=== PATIENT | male | born 1980 | race African-American/Black ===

== ENCOUNTER 2024-10-24 06:28 | Emergency (ER) | payer BC ==
--- OUTSIDE RECORDS SUMMARY | 2024-10-24 06:33 | XMS REPORT | Continuity of Care Document ---
Author Name Unknown Address [address] [facility] [address] [place] [address] Organization [facility] Address [address] [facility] 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 6 [id number] [facility] Problems Condition Name Condition Details Condition Category Status Onset Date Resolution Date Last Treatment Date Treating Clinician Comments Source Well adult exam Well adult exam Disease Active 2023-07 0 00:00: 00 Alta castaneda Diabetes mellitus Diabetes mellitus Disease Active 03-21 00:00: 00 Alta castaneda Erectile dysfunctio n Erectile dysfunctio n Disease Active 03-21 00:00: 00 Alta Mercadoa tonya Overweight (BMI 25.0-29.9) Overweight (BMI 25.0-29.9) Disease Active 03-21 00:00: 00 Alta castaneda Type 2 diabetes mellitus with hyperglyce keo, without long-term current use of insulin (multi HCC) Type 2 diabetes mellitus with hyperglyce keo, without long-term current use of insulin (multi HCC) Disease Active 03-21 00:00: 00 Alta castaneda Tobacco use Tobacco use Disease Active Alta castaneda Brachial plexus disorder (disorder) Brachial plexus disorder (disorder) Active Problem 08/01/2022 [facility] Neurology Beason Problem Active 2022-08-01 06:18:03 Darion Anaya Diabetes mellitus type 2 (disorder) Diabetes mellitus type 2 (disorder) Active Problem 08/01/2022 [facility] Neurology Beason Problem Active 2022-08-01 06:18:03 Darion Anaya [id number] Mixed hyperlipid emia Problem [facility] [id number] Postherpet ic neuralgia Problem [facility] [id number] 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 Problem [facility] [id number] Neuralgic amyotrophy Problem [facility] [id number] Type 2 diabetes mellitus with unspecifie d complicati ons Problem [facility] [id number] Tobacco use disorder Problem [facility] [id number] Otalgia of right ear Problem [facility] [id number] Noncomplia nce with dietary restrictio n Problem [facility] Allergies, Adverse Reactions, Alerts Allergy Name Allergy Type Status Severity Reaction(s) Onset Date Inactive Date Treating Clinician Comments Source Morphine Propensi ty to adverse reaction s Active 2023-07 00:00: 00 Other Reaction( s): Unknown Atla Wilkes - Externa l morphine morphine Active Unknown [facility] No Known Medicati on Allergie s No Known Medicati on Allergie s Active [facility]oria [facility] Social History Social Habit Start Date Stop Date Quantity Comments Source Gender identity Esme villalobos Surindershamika - External Sexual orientation Estrella poe Semicashamika - External History of Occupation Alta Wilkes - External History of tobacco use Cigarette Smoker Alta Cadena shamika - External Alcoholic beverage intake 2024-08-22 00:00:00 2024-08-22 00:00:00 Current drinker of alcohol (finding) Alta Wilkes - External Tobacco use and exposure 2024-05-22 00:00:00 2024-05-22 00:00:00 Smokeless tobacco non-user Alta Wilkes - External History of Social function 2024-05-22 00:00:00 2024-05-22 00:00:00 Alta Wilkes - External Cigarettes smoked current (pack per day) - Reported 2024-05-22 00:00:00 2024-05-22 00:00:00 Alta Wilkes - External Cigarette pack-years 2024-05-22 00:00:00 2024-05-22 00:00:00 Alta Wilkes - External Alcohol intake 2023-03-21 00:00:00 2023-03-21 00:00:00 Current drinker of alcohol (finding) Alta Wilkes - External Education 2023-03-21 00:00:00 2023-03-21 00:00:00 16 Alta Wilkes - External Alcohol Comment 2023-03-21 00:00:00 2023-03-21 00:00:00 occasionally Alta Wilkes - External Sex 2023-02-13 12:22:43 2023-02-13 12:22:43 Male (finding) Alta Wilkes - External Sex assigned at 1980 00:00:00 1980 00:00:00 Alta Wilkes - External Smoking Status Start Date Stop Date Source Smokes tobacco daily 2024-05-22 00:00:00 Alta Wilkes - External Medications Ordered Medication Name Filled Medication Name Start Date Stop Date Current Medication? Ordering Clinician Indication Dosage Frequency Signature (SIG) Comments Components Source Metformin HCl ER 500 MG oral TABLET SR 24 HR 08-22 00:00: 00 Yes [id number] 9109 1000mg Q.5D Take 2 tablets (1,000 mg total) by mouth 2 times daily. Alta Mercadoa tonya glipiZIDE 5 MG oral Tablet 08-22 00:00: 00 Yes [id number] 9109 5mg Take 1 tablet (5 mg total) by mouth in the morning and 1 tablet (5 mg total) in the evening. Take before meals. Alta castaneda Metformin HCl ER 500 MG oral TABLET SR 24 HR 2023-07 00:00: 00 08-22 00:00 :00 No [id number] 9109 1000mg Q.5D Take 2 tablets (1,000 mg total) by mouth 2 times daily. Alta castaneda Continuous Glucose Mechanical Tech (FreeStyle Nidhi 2 Robinson) does not apply Device 2023-07 00:00: 00 Yes [id number] 9109 Check BS continuous ly. Alta castaneda Continuous Glucose Sensor (FreeStyle Nihdi 2 Sensor) does not apply Misc 2023-07 00:00: 00 Yes [id number] 9109 Check BS continousl y. Alta castaneda glipiZIDE 5 MG oral Tablet 2023-07 00:00: 00 08-22 00:00 :00 No [id number] 9109 5mg Take 1 tablet (5 mg total) by mouth daily (before a meal). Alta castaneda GlipiZIDE 2.5 MG oral TABLET SR 24 HR 2023-07 15:13: 34 05-22 00:00 :00 No every 24 hours. Atla castaneda Lidocaine 5 % apply externally Ointment 2023-07 15:10: 26 05-22 00:00 :00 No [id number] 3D every 8 hours. Alta castaneda Metformin HCl 500 MG oral Tablet 2023-07 00:00: 00 Yes [id number] 9109 500mg Take 1 tablet (500 mg total) by mouth in the morning and 1 tablet (500 mg total) in the evening. Take with meals. Alta castaneda predniSONE (DELTASONE) 20 MG oral tablet 03-05 00:00: 00 05-22 00:00 :00 No Alta castaneda Metformin HCl ER 500 MG oral TABLET SR 24 HR 03-21 16:11: 01 03-21 00:00 :00 No every 12 hours. Alta castaneda Valacyclovi r HCl 1 g oral Tablet 03-21 16:03: 51 03-21 00:00 :00 No 1000mg 1 tablet (1,000 mg total) every 12 hours. Alta Chung castaneda Metformin HCl ER 500 MG oral TABLET SR 24 HR 03-21 16:00: 45 03-21 00:00 :00 No 1000mg Take 2 tablets (1,000 mg total) by mouth 2 times daily. Alta Secathy castaneda Metformin HCl ER 500 MG oral TABLET SR 24 HR 03-21 00:00: 00 05-22 00:00 :00 No [id number] 9109 1000mg Take 2 tablets (1,000 mg total) by mouth every 12 hours. 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, Weight Darion Anaya glipiZIDE 2021-07 15:40: 00 Yes PO, Daily, 0 Refill(s) Darion Anaya MetFORMIN (Eqv-Glucop xiomara XR) 500 mg oral tablet, extended release 2021-07 15:39: 00 Yes 500 mg = 1 tab, PO, Daily, with evening meal, # 30 tab, 0 Refill(s) Darion Leonann Metformin HCl 500 MG oral Tablet 2021-07 2-14 00:00: 00 05-22 00:00 :00 No 500 mg = 1 tab, PO, Daily, with evening meal, # 30 tab, 0 Refill(s) Alta Chung Mercadoa tonya glipiZIDE 10 MG oral Tablet 2021-07 2-14 00:00: 00 03-21 00:00 :00 No PO, Daily, 0 Refill(s) Alta Chung Mercadoa l methylPREDN ISolone 4 MG methylPREDN ISolone 4 MG - 00:00: 00 04-18 00:00 :00 No QD methylPRED NISolone 4 MG methylPREDN ISolone 4 MG methylPREDN ISolone 4 MG 04-12 00:00: 00 04-18 00:00 :00 No QD methylPRED NISolone 4 MG methylPREDN ISolone 4 MG methylPREDN ISolone 4 MG - 00:00: 00 04-18 00:00 :00 No QD methylPRED NISolone 4 MG methylPREDN ISolone 4 MG methylPREDN ISolone 4 MG -21 00:00: 00 04-18 00:00 :00 No QD methylPRED NISolone 4 MG methylPREDN ISolone 4 MG methylPREDN ISolone 4 MG 04-12 00:00: 00 04-18 00:00 :00 No QD methylPRED NISolone 4 MG Gabapentin 300 MG Gabapentin 300 MG 9-13 00:00: 00 No QD Gabapentin 300 MG Ofloxacin 0.3 % Ofloxacin 0.3 % 03-13 00:00: 00 03-20 00:00 :00 No 10{drop s_into_ affecte d_ear} QD Ofloxacin 0.3 % Ofloxacin 0.3 % Ofloxacin 0.3 % 03-13 00:00: 00 03-20 00:00 :00 No 10{drop s_into_ affecte d_ear} QD Ofloxacin 0.3 % glipiZIDE XL 2.5 MG glipiZIDE XL 2.5 MG 02-23 00:00: 00 No BID glipiZIDE XL 2.5 MG metFORMIN HCl ER 500 MG metFORMIN HCl ER 500 MG 02-23 00:00: 00 No BID metFORMIN HCl ER 500 MG glipiZIDE XL 2.5 MG glipiZIDE XL 2.5 MG 02-23 00:00: 00 No BID glipiZIDE XL 2.5 MG metFORMIN HCl ER 500 MG metFORMIN HCl ER 500 MG 02-23 00:00: 00 No BID metFORMIN HCl ER 500 MG glipiZIDE XL 2.5 MG glipiZIDE XL 2.5 MG 02-23 00:00: 00 No BID glipiZIDE XL 2.5 MG metFORMIN HCl ER 500 MG metFORMIN HCl ER 500 MG 02-23 00:00: 00 No BID metFORMIN HCl ER 500 MG Synjardy XR Synjardy XR 03-07 00:00: 00 11-11 00:00 :00 No [facility] Marie 2 tablets with breakfast [facility] valACYclovi r HCl 1 GM valACYclovi r HCl 1 GM No 1{table t} BID valACYclov ir HCl 1 GM Naproxen 500 MG Naproxen 500 MG No BID Naproxen 500 MG Naproxen 500 MG Naproxen 500 MG No BID Naproxen 500 MG Naproxen 500 MG Naproxen 500 MG No BID Naproxen 500 MG Naproxen 500 MG Naproxen 500 MG No BID Naproxen 500 MG Naproxen 500 MG Naproxen 500 MG No BID Naproxen 500 MG Naproxen 500 MG Naproxen 500 MG No BID Naproxen 500 MG Naproxen 500 MG Naproxen 500 MG No BID Naproxen 500 MG Naproxen 500 MG Naproxen 500 MG No BID Naproxen 500 MG Naproxen 500 MG Naproxen 500 MG No BID Naproxen 500 MG Immunizations Ordered Immunization Name Filled Immunization Name Date Status Comments Source Adacel (Tdap) Adacel (Tdap) 2019-05-06 15:10:00 Completed [facility] Adacel (Tdap) Adacel (Tdap) 2019-05-06 15:10:00 Completed [facility] Adacel (Tdap) Adacel (Tdap) 2019-05-06 15:10:00 Completed [facility] Adacel (Tdap) Adacel (Tdap) 2019-05-06 15:10:00 Completed [facility] Adacel (Tdap) Adacel (Tdap) 2019-05-06 15:10:00 Completed [facility] Adacel (Tdap) Adacel (Tdap) 2019-05-06 15:10:00 Completed [facility] Adacel (Tdap) Adacel (Tdap) 2019-05-06 15:10:00 Completed [facility] Adacel (Tdap) Adacel (Tdap) 2019-05-06 15:10:00 Completed [facility] Adacel (Tdap) Adacel (Tdap) 2019-05-06 15:10:00 Completed [facility] Adacel (Tdap) Adacel (Tdap) 2019-05-06 15:10:00 Completed [facility] Adacel (Tdap) Adacel (Tdap) 2019-05-06 15:10:00 Completed [facility] Adacel (Tdap) Adacel (Tdap) 2019-05-06 15:10:00 Completed [facility] Adacel (Tdap) Adacel (Tdap) 2019-05-06 15:10:00 Completed [facility] Adacel (Tdap) Adacel (Tdap) 2019-05-06 15:10:00 Completed [facility] Adacel (Tdap) Adacel (Tdap) 2019-05-06 15:10:00 Completed [facility] Adacel (Tdap) Adacel (Tdap) 2019-05-06 15:10:00 Completed [facility] Tdap- (Boostrix, Adacel) 2019-05-06 00:00:00 Completed Alta Wilkes - External TDAP > 7 Years-Adacel TDAP > 7 Years-Adacel 2019-05-06 00:00:00 Completed [facility] Pneumovax (PPSV23) Pneumovax (PPSV23) 2017-09-04 13:47:00 Completed [facility] Pneumovax (PPSV23) Pneumovax (PPSV23) 2017-09-04 13:47:00 Completed [facility] Pneumovax (PPSV23) Pneumovax (PPSV23) 2017-09-04 13:47:00 Completed [facility] Pneumovax (PPSV23) Pneumovax (PPSV23) 2017-09-04 13:47:00 Completed [facility] Pneumovax (PPSV23) Pneumovax (PPSV23) 2017-09-04 13:47:00 Completed [facility] Pneumovax (PPSV23) Pneumovax (PPSV23) 2017-09-04 13:47:00 Completed [facility] Pneumovax (PPSV23) Pneumovax (PPSV23) 2017-09-04 13:47:00 Completed [facility] Pneumovax (PPSV23) Pneumovax (PPSV23) 2017-09-04 13:47:00 Completed [facility] Pneumovax (PPSV23) Pneumovax (PPSV23) 2017-09-04 13:47:00 Completed [facility] Pneumovax (PPSV23) Pneumovax (PPSV23) 2017-09-04 13:47:00 Completed [facility] Pneumovax (PPSV23) Pneumovax (PPSV23) 2017-09-04 13:47:00 Completed [facility] Pneumovax (PPSV23) Pneumovax (PPSV23) 2017-09-04 13:47:00 Completed [facility] Pneumovax (PPSV23) Pneumovax (PPSV23) 2017-09-04 13:47:00 Completed [facility] Pneumovax (PPSV23) Pneumovax (PPSV23) 2017-09-04 13:47:00 Completed [facility] Pneumovax (PPSV23) Pneumovax (PPSV23) 2017-09-04 13:47:00 Completed [facility] Pneumovax (PPSV23) Pneumovax (PPSV23) 2017-09-04 13:47:00 Completed [facility] Pneumococcal Vaccine, Polysaccharide 2017-09-04 00:00:00 Completed Alta Seybold - External Tdap- (Boostrix, Adacel) Unknown Completed Alta Seybold - External Pneumococcal Vaccine, Polysaccharide Unknown Completed Alta Seybol d - External Tdap- (Boostrix, Adacel) Unknown Completed Alta Seybold - External Pneumococcal Vaccine, Polysaccharide Unknown Completed Alta Seybol d - External Pneumovax (PPSV23) Pneumovax (PPSV23) Unknown Completed [facility] Adacel (Tdap) Adacel (Tdap) Unknown Completed [facility] Pneumovax (PPSV23) Pneumovax (PPSV23) Unknown Completed [facility] Adacel (Tdap) Adacel (Tdap) Unknown Completed [facility] Pneumovax (PPSV23) Pneumovax (PPSV23) Unknown Completed [facility] Adacel (Tdap) Adacel (Tdap) Unknown Completed [facility] Pneumovax (PPSV23) Pneumovax (PPSV23) Unknown Completed [facility] Adacel (Tdap) Adacel (Tdap) Unknown Completed [facility] Pneumovax (PPSV23) Pneumovax (PPSV23) Unknown Completed [facility] Adacel (Tdap) Adacel (Tdap) Unknown Completed [facility] Vital Signs Vital Name Observation Time Observation Value Comments S ource Systolic blood pressure 2024-08-22 20:09:00 118 mm[Hg] Alta Huitronybliyah ld - External Diastolic blood pressure 2024-08-22 20:09:00 78 mm[Hg] Alta Seybo ld - External Heart rate 2024-08-22 20:09:00 107 /min Alekseyse y Seybold - External Body temperature 2024-08-22 20:09:00 36.28 Joana Alta Seybold - External Respiratory rate 2024-08-22 20:09:00 16 /min Alta Seybold - External Body height 2024-08-22 20:09:00 182.9 cm Esme ey Seybold - External Body weight 2024-08-22 20:09:00 83.099 kg Esme ey Seybold - External BMI 2024-08-22 20:09:00 24.85 kg/m2 Esme ey Seybold - External Oxygen saturation in Arterial blood by Pulse oximetry 2024-08-22 20:09:00 97 /min Alta Seybo ld - External Systolic blood pressure 2024-05-22 20:07:00 120 mm[Hg] Alta Seybo ld - External Diastolic blood pressure 2024-05-22 20:07:00 80 mm[Hg] Alta Seybo ld - External Heart rate 2024-05-22 20:07:00 97 /min Alekseyse y Seybold - External Body temperature 2024-05-22 20:07:00 35.94 Joana Alta Seybold - External Respiratory rate 2024-05-22 20:07:00 14 /min Alta Seybold - External Body height 2024-05-22 20:07:00 182.9 cm Esme ey Seybold - External Body weight 2024-05-22 20:07:00 78.926 kg Esme ey Seybold - External BMI 2024-05-22 20:07:00 23.60 kg/m2 Esme ey Seybold - External Body weight 2023-03-21 20:35:00 86.183 kg Esme ey Seybold - External BMI 2023-03-21 20:35:00 25.77 kg/m2 Esme ey Seybold - External Oxygen saturation in Arterial blood by Pulse oximetry 2023-03-21 20:35:00 99 /min Alta Seybo ld - External Systolic blood pressure 2023-03-21 20:35:00 127 mm[Hg] Alta Seybo ld - External Diastolic blood pressure 2023-03-21 20:35:00 88 mm[Hg] Alta Taylor ld - External Heart rate 2023-03-21 20:35:00 73 /min Marco Wilkes - External Body temperature 2023-03-21 20:35:00 35.72 Joana Alta Wilkes - External Respiratory rate 2023-03-21 20:35:00 20 /min Alta Wilkes - External Body height 2023-03-21 20:35:00 182.9 cm Esme Wilkes - External height 2022-12-12 11:30:00 72 [in_i] [facility] weight 2022-12-12 11:30:00 183 [lb_av] [facility] temperature 2022-12-12 11:30:00 98 [degF] [facility] bmi 2022-12-12 11:30:00 24.82 kg/m2 [facility] blood pressure systolic 2022-12-12 11:30:00 125 mm[Hg] [facility] blood pressure diastolic 2022-12-12 11:30:00 72 mm[Hg] [facility] height 2022-09-13 12:50:00 72 [in_i] [facility] weight 2022-09-13 12:50:00 184.8 [lb_av] [facility] bmi 2022-09-13 12:50:00 25.06 kg/m2 [facility] height 2022-09-07 08:20:00 72 [in_i] [facility] weight 2022-09-07 08:20:00 184.8 [lb_av] Co [facility] temperature 2022-09-07 08:20:00 97.5 [degF] [facility] bmi 2022-09-07 08:20:00 25.06 kg/m2 [facility] oximetry 2022-09-07 08:20:00 97 % [facility] respiratory rate 2022-09-07 08:20:00 17 /min [facility] blood pressure systolic 2022-09-07 08:20:00 124 mm[Hg] [facility] blood pressure diastolic 2022-09-07 08:20:00 72 mm[Hg] [facility] height 2022-06-05 09:50:00 72 [in_i] [facility] weight 2022-06-05 09:50:00 178 [lb_av] [facility] temperature 2022-06-05 09:50:00 97.2 [degF] Com [facility] bmi 2022-06-05 09:50:00 24.14 kg/m2 [facility] oximetry 2022-06-05 09:50:00 97 % [facility] respiratory rate 2022-06-05 09:50:00 16 /min [facility] blood pressure systolic 2022-06-05 09:50:00 130 mm[Hg] [facility] blood pressure diastolic 2022-06-05 09:50:00 86 mm[Hg] [facility] height 2022-05-09 10:30:00 72 [in_i] [facility] weight 2022-05-09 10:30:00 175 [lb_av] [facility] temperature 2022-05-09 10:30:00 97.5 [degF] Com [facility] bmi 2022-05-09 10:30:00 23.73 kg/m2 [facility] blood pressure systolic 2022-05-09 10:30:00 126 mm[Hg] [facility] blood pressure diastolic 2022-05-09 10:30:00 95 mm[Hg] [facility] height 2022-05-01 08:50:00 72 [in_i] [facility] weight 2022-05-01 08:50:00 177 [lb_av] [facility] temperature 2022-05-01 08:50:00 97.7 [degF] Com [facility] bmi 2022-05-01 08:50:00 24 kg/m2 [facility] oximetry 2022-05-01 08:50:00 99 % [facility] respiratory rate 2022-05-01 08:50:00 18 /min [facility] blood pressure systolic 2022-05-01 08:50:00 129 mm[Hg] [facility] blood pressure diastolic 2022-05-01 08:50:00 87 mm[Hg] [facility] height 2022-04-12 13:00:00 72 [in_i] [facility] weight 2022-04-12 13:00:00 174.2 [lb_av] [facility] temperature 2022-04-12 13:00:00 98.1 [degF] Com [facility] bmi 2022-04-12 13:00:00 23.62 kg/m2 [facility] oximetry 2022-04-12 13:00:00 100 % [facility] respiratory rate 2022-04-12 13:00:00 16 /min [facility] blood pressure systolic 2022-04-12 13:00:00 120 mm[Hg] [facility] blood pressure diastolic 2022-04-12 13:00:00 82 mm[Hg] [facility] height 2022-04-04 08:40:00 72 [in_i] [facility] weight 2022-04-04 08:40:00 173.5 [lb_av] [facility] temperature 2022-04-04 08:40:00 97.5 [degF] Com [facility] bmi 2022-04-04 08:40:00 23.53 kg/m2 [facility] oximetry 2022-04-04 08:40:00 100 % [facility] respiratory rate 2022-04-04 08:40:00 17 /min [facility] blood pressure systolic 2022-04-04 08:40:00 130 mm[Hg] [facility] blood pressure diastolic 2022-04-04 08:40:00 85 mm[Hg] [facility] height 2022-03-30 08:40:00 72 [in_i] [facility] weight 2022-03-30 08:40:00 181.4 [lb_av] [facility] temperature 2022-03-30 08:40:00 98.1 [degF] Com [facility] bmi 2022-03-30 08:40:00 24.6 kg/m2 [facility] oximetry 2022-03-30 08:40:00 94 % [facility] respiratory rate 2022-03-30 08:40:00 17 /min [facility] blood pressure systolic 2022-03-30 08:40:00 124 mm[Hg] [facility] blood pressure diastolic 2022-03-30 08:40:00 72 mm[Hg] [facility] height 2022-03-13 09:20:00 72 [in_i] [facility] weight 2022-03-13 09:20:00 177 [lb_av] [facility] bmi 2022-03-13 09:20:00 24 kg/m2 [facility] height 2022-02-23 15:50:00 72 [in_i] [facility] weight 2022-02-23 15:50:00 177.0 [lb_av] [facility] temperature 2022-02-23 15:50:00 98.4 [degF] Com [facility] bmi 2022-02-23 15:50:00 24 kg/m2 [facility] oximetry 2022-02-23 15:50:00 95 % [facility] respiratory rate 2022-02-23 15:50:00 16 /min [facility] blood pressure systolic 2022-02-23 15:50:00 122 mm[Hg] [facility] blood pressure diastolic 2022-02-23 15:50:00 80 mm[Hg] [facility] height 2022-02-08 15:10:00 72 [in_i] [facility] weight 2022-02-08 15:10:00 177.1 [lb_av] [facility] temperature 2022-02-08 15:10:00 98.4 [degF] Com [facility] bmi 2022-02-08 15:10:00 24.02 kg/m2 [facility] oximetry 2022-02-08 15:10:00 99 % [facility] respiratory rate 2022-02-08 15:10:00 18 /min [facility] blood pressure systolic 2022-02-08 15:10:00 128 mm[Hg] [facility] blood pressure diastolic 2022-02-08 15:10:00 86 mm[Hg] [facility] Diastolic (mm Hg) 2022-07-05 15:36:00 [facility] Heart Rate 2022-07-05 15:36:00 [facility] Height 2022-07-05 15:36:00 6 [ft_i] [facility] Weight 2022-07-05 15:36:00 [facility] BMI Calculated 2022-07-05 15:36:00 [facility] Systolic (mm Hg) 2022-07-05 15:36:00 [facility] Procedures Procedure Date / Time Performed Performing Clinicia n Source Rotator cuff repair [facility] Encounters Start Date/Time End Date/Time Encounter Type Admission Type Attending Clinicians Care Facility Care Department Encounter ID Source 2023-03-14 09:09:00 Out[facility] Marie[facility] [id number] [facility] 2023-03-13 08:25:00 Outpatient Marie, [facility] [id number] [facility] 2022-09-13 12:00:00 Outpatient Marie, [facility] [id number] [facility] 2022-06-01 09:57:00 Outpatient Marie, [facility] [id number] [facility] 2022-05-09 10:28:00 Outpatient Marie, [facility] [id number] [facility] 2022-04-28 08:42:00 Outpatient Marie, [facility] [id number] [facility] 2022-04-20 09:03:00 Outpatient Marie, [facility] [id number] [facility] 2022-02-22 10:12:00 Outpatient Marie, [facility] [id number] [facility] 2021-08-17 11:17:54 Outpatient Marie, [facility] [id number] [facility] 2024-11-17 14:30:00 2024-11-17 14:30:00 Outpatient ROVERTO CUENCA [id number] [facility] 2024-09-12 15:45:00 2024-09-12 15:45:00 Outpatient ZBIGNIEW, RICHARD CAI ALTA [id number] [facility] 2024-09-09 00:00:00 2024-09-09 00:00:00 Outpatient PREZAS, ROVERTO CAI ALTA [id number] [facility] 2024-09-05 00:00:00 2024-09-05 00:00:00 Outpatient PREZAS, ROVERTO CAI ALTA [id number] [facility] 2024-09-01 08:00:00 2024-09-01 08:00:00 Outpatient LAB90 ALTA ALTA [id number] [facility] 2024-08-29 08:00:00 2024-08-29 08:00:00 Outpatient LAB90 ALTA ALTA [id number] [facility] 2024-08-22 14:15:00 2024-08-22 14:15:00 Outpatient PREZAS, ROVERTO CAI ALTA [id number] [facility] 2024-08-15 00:00:00 2024-08-15 00:00:00 Outpatient PREZAS, ROVERTO ALTA CAI [id number] [facility] 2024-06-23 00:00:00 2024-06-23 00:00:00 Outpatient PREZAS, ROVERTO ALTA CAI [id number] [facility] 2024-06-20 00:00:00 2024-06-20 00:00:00 Outpatient PREZAS, ROVERTO ALTA CAI [id number] [facility] 2024-06-18 00:00:00 2024-06-18 00:00:00 Outpatient PREZAS, ROVERTO ALTA CAI [id number] [facility] 2024-06-16 15:45:00 2024-06-16 15:45:00 Outpatient ZBIGNIEW, RICHARD ALTA CAI [id number] [facility] 2024-06-16 00:00:00 2024-06-16 00:00:00 Outpatient PREZAS, ROVERTO ALTA CAI [id number] [facility] 2024-06-16 00:00:00 2024-06-16 00:00:00 Outpatient PREZASROVERTO ALTA [id number] [facility] 2024-06-04 00:00:00 2024-06-04 00:00:00 Outpatient PREZASROVERTO ALTA [id number] [facility] 2024-05-27 08:40:00 2024-05-27 08:40:00 Outpatient LAB90 ALTA ARGUETASEY [id number] [facility] 2024-05-22 15:30:00 2024-05-22 15:30:00 Outpatient PREZASROVERTO ALTA [id number] [facility] 2024-02-28 00:00:00 2024-02-28 00:00:00 Outpatient PREZASROVERTO ALTA [id number] [facility] 2023-06-06 00:00:00 2023-06-06 00:00:00 Outpatient PREZASROVERTO ALTA [id number] [facility] 2023-04-23 16:00:00 2023-04-23 16:00:00 Outpatient PREZASROVERTO ALTA [id number] [facility] 2023-04-02 00:00:00 2023-04-02 00:00:00 Outpatient PREZASROVERTO ALTA [id number] [facility] 2023-03-21 16:00:00 2023-03-21 16:00:00 Outpatient PREZAS[facility]OVERTO [facility]TA [facility] [id number] [facility]:00 2023-03-15 00:00:00 Outpatient MD ALTA BURGESS [id number] [facility] 2023-03-15 00:00:00 2023-03-15 00:00:00 Outpatient MD ALTA BURGESS [id number] [facility] 2022-12-12 00:00:00 2022-12-12 00:00:00 OFFICE VISIT ESTAB PT LEVEL 4 [facility] [id number] [facility] 2022-09-13 00:00:00 2022-09-13 00:00:00 OFFICE VISIT ESTAB PT LEVEL 3 [facility] [id number] [facility] 2022-09-13 00:00:00 2022-09-13 00:00:00 (TEL) [facility]C [facility] [id number] [facility] 2022-09-07 00:00:00 2022-09-07 00:00:00 OFFICE VISIT ESTAB PT LEVEL 3 [facility] [id number] [facility] 2022-09-07 00:00:00 2022-09-07 00:00:00 (TEL) [facility]C [facility] [id number] [facility] 2022-07-28 14:32:00 2022-07-30 05:59:59 Outside Medical Records [facility] [id number] Darion castaneda [place] 2022-07-07 15:19:41 2022-07-09 05:59:59 Outside Medical Records [facility] [id number] Darion Leonann 2022-07-05 15:30:00 2022-07-06 05:59:59 Outpatient [facility] [id number] Darion Leonann 2022-06-05 00:00:00 2022-06-05 00:00:00 OFFICE VISIT ESTAB PT LEVEL 4 [facility]C [facility] [id number] [facility] 2022-05-10 00:00:00 2022-05-10 00:00:00 (TEL) STLMLC [facility] [id number] [facility] 2022-05-09 00:00:00 2022-05-09 00:00:00 CONSULT - OFFICE, L4 [facility]MLC [facility] [id number] [facility] 2022-05-01 00:00:00 2022-05-01 00:00:00 OFFICE VISIT EST PT LEVEL 3 [facility]C [facility] [id number] [facility] 2022-04-14 00:00:00 2022-04-14 00:00:00 (TEL) [facility]LMLC [facility] [id number] [facility] 2022-04-12 00:00:00 2022-04-12 00:00:00 (TEL) STLMLC [facility] [id number] [facility] 2022-04-12 00:00:00 2022-04-12 00:00:00 OFFICE VISIT EST PT LEVEL 3 [facility]C [facility]C [id number] [facility] 2022-04-04 00:00:00 2022-04-04 00:00:00 OFFICE VISIT EST PT LEVEL 3 [facility]C [facility]C [id number] [facility] 2022-03-30 00:00:00 2022-03-30 00:00:00 OFFICE VISIT EST PT LEVEL 3 [facility]C [facility]C [id number] [facility] 2022-03-30 00:00:00 2022-03-30 00:00:00 (TEL) STLMLC [facility]C [id number] [facility] 2022-03-13 00:00:00 2022-03-13 00:00:00 OFFICE VISIT EST PT LEVEL 3 [facility]C [facility]C [id number] [facility] 2022-03-13 00:00:00 2022-03-13 00:00:00 (TEL) STLMLC [facility]C [id number] [facility] 2022-02-23 00:00:00 2022-02-23 00:00:00 OFFICE VISIT ESTAB PT LEVEL 4 [facility]C [facility]C [id number] [facility] 2022-02-08 00:00:00 2022-02-08 00:00:00 PREV VISIT EST AGE 40-64 STLMLC STLMLC [id number] [facility] 2019-08-14 08:00:00 2019-08-14 08:00:00 Outpatient D[facility]ie [facility] Medicine Michaela [facility] [id number] [facility] 2019-07-24 07:56:00 2019-07-24 07:56:00 [facility] [id number] [facility] 2019-05-06 14:45:00 2019-05-06 14:45:00 [facility] [id number] [facility] 2019-03-07 15:07:00 2019-03-07 15:07:00 Outpatient [facility] [id number] [facility] 2019-03-07 09:30:00 2019-03-07 09:30:00 Outpatient [facility] Medicine [facility] [id number] [facility] 2019-02-21 13:45:00 2019-02-21 13:45:00 [facility] [id number] [facility] 2019-02-21 00:00:00 2019-02-21 00:00:00 Outpatient [facility]C [facility] [id number] [facility] 2017-10-25 08:45:00 2017-10-25 08:45:00 Outpatient [facility] [id number] [facility] Results Test Description Test Time Test Comments Results Result Co mments Source HEMOGLOBIN [id number] 00:00:00* Test Item Value Reference Range Interpretation Comme nts A1C (test code = 4548-4) 8.4 Notes Date/Time Note Provider Source 2024-08-22 14:11:40 Chief Complaint Patient presents with Diabetes 3 month follow up Antoine Feldman MA [facility] 2024-05-22 15:10:31 Chief Complaint Patient presents with Diabetes He hasn't taken any diabetic medication in about a year. Julieta Delgado MA II [facility] 2023-03-21 15:38:56 Formatting of this n ote might be different from the original. Patient is here to establish care. He has been diabetic for 5 years. Maternal side of family with sever diabetes. [facility]
[2024-10-24] MEDS ORDERED: NA CHLORIDE 0.9% 1,000 ML ONE ×2 (06:42→08:22)
[2024-10-24] MEDS ORDERED: KETOROLAC 30 MG/ML INJ ONE (06:42)
[2024-10-24 07:05] LABS: Absolute Basophils 0.1 K/uL (0-0.5); Absolute Lymphocytes (CBC) 0.3 K/uL (0.7-4.9); Absolute Monocytes 0.5 K/uL (0.1-1.3); Absolute Neutrophil 13.3 K/uL (1.8-8.0); Basophils % 0.5 % (0-1.3); Eosinophils % 0.3 % (0-4.4); Hematocrit 49.2 % (39.6-49.0); Lymphocytes % 1.9 % (15.3-44.8); MCH 31.2 pg (27.0-35.0); MCHC 34.6 g/dL (32.0-36.0); MCV 90.1 fL (80-100); MPV 8.9 fL (7.6-11.3); Monocytes % 3.7 % (3.3-12.3); Neutrophils % 93.6 % (41.7-73.7); Platelets 222 thou/uL (152-406); RBC Red Blood Cell Count 5.46 M/uL (4.33-5.43); Red Cell Distribution Width 12.6 % (12.1-15.2)
[2024-10-24 07:15] LABS: Albumin 4.1 g/dL (3.4-5.0); Albumin/Globulin Ratio 1.2 (1.1-1.8); Anion Gap 7.1 mEq/L (5.0-15.0); Bilirubin Total 1.6 mg/dL (0.2-1.0); Globulin 3.4 g/dL (2.3-3.5); Potassium 4.1 mEq/L (3.5-5.1); Protein, Total 7.5 g/dL (6.4-8.2)
--- NOTE | 2024-10-24 08:15 | RAD REPORT ---
EXAMINATION: CT ABDOMEN AND PELVIS WITH CONTRAST CLINICAL INDICATION: ABD PAIN TECHNIQUE: CT abdomen and pelvis was performed, after the administration of IV contrast, as per [facility] protocol. Axial, sagittal and coronal reconstructions were obtained. One or more of the following dose reduction techniques were used: Automated exposure control, adjustment of the mA and k V according to patient size, and iterative reconstruction. Unless otherwise specified, incidental findings do not require dedicated imaging follow-up. COMPARISON: No prior exam. FINDINGS: LOWER CHEST: The visualized lung bases are clear. Small hiatal hernia. LIVER: Normal in size and contour. No focal lesion. Cholecystectomy clips. SPLEEN: Normal size. No focal lesion. PANCREAS: No mass, ductal dilation, or evelia-pancreatic fluid. ADRENALS: Normal; no mass. KIDNEYS: Normal size and contour. No hydronephrosis. GASTROINTESTINAL TRACT: No evidence of free air, significant intra-abdominal free fluid, bowel obstru ction or abscess. APPENDIX: Normal appendix. LYMPH NODES: No lymphadenopathy. MUSCULOSKELETAL: Prominent posterior disc bulging lower lumbar spine. ADDITIONAL FINDINGS: Moderate stool is present throughout the colon. IMPRESSION: No acute or concerning abnormalities seen in the abdomen or pelvis. Moderate stool retention throughout the colon.
[2024-10-24 08:57] LABS: Sqamous Epithelial None Seen /HPF (None Seen); Urine Bacteria None Seen /HPF (<20); Urine Bilirubin NEGATIVE (Negative); Urine Blood Negative (Negative); Urine Clarity Clear (Clear); Urine Color Light-Yellow (Yellow); Urine Culture Reflex Order NOT NEEDED; Urine Glucose 4+ (Over) (Negative); Urine Ketones 1+ (Negative); Urine Micro Reflex YN NO BILL MICROSCOPIC; Urine Nitrite NEGATIVE (Negative); Urine Protein NEGATIVE (Negative); Urine RBC <5 /HPF (None Seen); Urine Urobilinogen Normal (Normal); Urine WBC <5 /HPF (<5)
[2024-10-24 09:01] LABS: Specific Gravity > 1.030 (1.005-1.030)
--- NOTE | 2024-10-24 09:05 | EDPHYS ---
Physician Documentation [facility] Name: Edinson Coffey Jr Age: 44 yrs Sex: Male : 1980 Arrival Date: 10/24/2024 Time: 06:28 Bed 6 Private MD: ED Physician Mannie Marie HPI: 10/24 06:39 This 44 yrs old Black Male presents to ER via Unassigned with complaints of Low Back rt Pain, Nausea/Vomiting. 06:39 Patient presents to the ED with back pain, nausea, vomiting starting at about 1:00. rt Patient reports he has been constipated for several days. Reports pain to the mid back, worse on the sides. Also reports a vague abdominal pain. Denies other complaints at this time, symptoms are moderate in severity, no other aggravating or alleviating factors.. Historical: - Allergies: 06:44 Morphine; vc1 - PMHx: 06:44 diabetes mellitus; vc1 - PSHx: 06:44 Cholecystectomy; left arm; vc1 - Immunization history:: Client reports having NOT received the Covid vaccine. - Infectious Disease History:: Denies. - Family history:: not pertinent. - Social history:: Smoking status: Patient reports the use of cigarette tobacco products, smokes one pack cigarettes per day. ROS: 06:39 Constitutional: Negative for fever, chills, and weight loss, Cardiovascular: Negative rt for chest pain, palpitations, and edema, Respiratory: Negative for shortness of breath, cough, wheezing, and pleuritic chest pain, MS/Extremity: Negative for injury and deformity, Skin: Negative for injury, rash, and discoloration, 06:39 Abdomen/GI: Positive for abdominal pain, nausea and vomiting, constipation, 06:39 Back: Positive for pain at rest, flank pain, Exam: 06:39 Constitutional: This is a well developed, well nourished patient who is awake, alert, rt and in no acute distress. Head/Face: Normocephalic, atraumatic. Chest/axilla: Normal chest wall appearance and motion. Nontender with no deformity. No lesions are appreciated. Cardiovascular: Regular rate and rhythm with a normal S1 and S2. No gallops, murmurs, or rubs. Normal PMI, no JVD. No pulse deficits. Respiratory: Lungs have equal breath sounds bilaterally, clear to auscultation and percussion. No rales, rhonchi or wheezes noted. No increased work of breathing, no retractions or nasal flaring. Abdomen/GI: Soft, non-tender, with normal bowel sounds. No distension or tympany. No guarding or rebound. No evidence of tenderness throughout. Skin: Warm, dry with normal turgor. Normal color with no rashes, no lesions, and no evidence of cellulitis. MS/ Extremity: Pulses equal, no cyanosis. Neurovascular intact. Full, normal range of motion. Neuro: Awake and alert, GCS 15, oriented to person, place, time, and situation. Cranial nerves II-XII grossly intact. Motor strength 5/5 in all extremities. Sensory grossly intact. Cerebellar exam normal. Normal gait. 06:39 Back: Tenderness to the bilateral flanks, worse on the left compared to the right, 06:53 ECG was reviewed by the Attending Physician. rt Vital Signs: 06:40 BP 134 / 99; Pulse 129; Resp 16; Temp 97.4; Pulse Ox 98% ; Weight 79.38 kg; Height 6 vc1 ft. 0 in. ; Pain 7/10; 07:45 BP 126 / 85; Pulse 107; Resp 18; Pulse Ox 100% on R/A; ph 08:46 BP 115 / 83; Pulse 100; Resp 16 S; Pulse Ox 99% on R/A; aa5 09:11 BP 115 / 83; Pulse 96; Resp 18; Temp 97.5; Pulse Ox 100% on R/A; ph 06:40 Body Mass Index 23.73 (79.38 kg, 182.88 cm) vc1 06:40 Pain Scale: Adult vc1 MDM: 06:34 Medical Screening Exam initiated rt 07:39 ED course: Patient signed out to me by nighttime physician. Patient is a 44-year-old sp3 male with history of diabetes who presents with vomiting, nonspecific low back pain and history of recent abdominal pain several days ago which has now resolved. Patient is s/p cholecystectomy. He arrived tachycardic with nausea which has somewhat resolved after IV fluids and symptomatic medications. Current heart rate 105. CT scan is pending. Differential diagnosis includes UTI/pyelonephritis spectrum, gastroenteritis, kidney stone, viral illness, dehydration, among others. Nothing to add to existing workup and disposition pending workup and patient course. Patient currently comfortable and declined any further medications at this time.. 08:27 Data reviewed: vital signs, nurses notes, old medical records, lab test result(s), sp3 radiologic studies. ED course: CT demonstrated some mild constipation without any significant findings. Patient heart rate still 105-110. No urine output as of yet. We will administer second liter normal saline to further hydrate and obtain urine sample and ensure urine output.. 09:02 ED course: Urine demonstrates no infection or other abnormality. Ketones noted. Patient sp3 is now feeling much better after second liter and we will safely discharge him home at this time.. 04 06:39 Order name: CBC with Diff; Complete Time: 07:16 rt 10/24 06:39 Order name: CMP; Complete Time: 07:16 rt 10/24 06:39 Order name: Lipase; Complete Time: 07:16 rt 10/24 06:39 Order name: UAM; Complete Time: 09:02 rt 04 06:39 Order name: CT Abd/Pelvis - IV Contrast Only; Complete Time: 08:15 rt 10/24 06:42 Order name: EKG; Complete Time: 06:43 rt 10/24 06:39 Order name: IV Saline Lock; Complete Time: 06:48 rt 10/24 06:39 Order name: Labs collected and sent; Complete Time: 06:48 rt 10/24 06:42 Order name: EKG - Nurse/Tech; Complete Time: 06:54 rt EC:53 Rate is 110 beats/min. Rhythm is regular, Sinus tachycardia with No ectopy. QRS [place] is rt Normal. [place] interval is normal. QRS interval is normal. QT interval is normal. No Q waves. T waves are Normal. No ST changes noted. Interpreted by me. Reviewed by me. Administered Medications: 06:48 Drug: TORadol - Ketorolac IVP 15 mg IVP once Route: IVP; Site: right antecubital; ha1 07:46 Follow up: Response: No adverse reaction; Pain is decreased ph 06:48 Drug: NS 0.9% IV 1000 ml IV at 1 bolus Per protocol; to be given as a bolus over 60 ha1 minutes Route: IV; Rate: 1 bolus; Site: right antecubital; 08:00 Follow up: Response: No adverse reaction; IV Status: Completed infusion; IV Intake: ph 1000ml 08:23 Drug: NS 0.9% IV 1000 ml IV at 1 bolus Per protocol; to be given as a bolus over 60 aa5 minutes Route: IV; Rate: 1 bolus; Site: right antecubital; 09:12 Follow up: Response: No adverse reaction; IV Status: Completed infusion; IV Intake: ph 1000ml 08:45 CANCELLED (Physician Discretion): ns 0.9% 1000 ml IV at 1000 ml once; to be given as a aa5 bolus over 60 minutes Disposition Summary: 10/24/24 09:04 Discharge Ordered Notes: Location: Home sp3 Condition: Stable sp3 Diagnosis - Vomiting, dehydration, hyperglycemia sp3 Followup: sp3 - With: Private Physician - When: Upon discharge from the Emergency Department - Reason: Continuance of care Discharge Instructions: - Discharge Summary Sheet sp3 - Vomiting, Adult sp3 Forms: - Medication Reconciliation Form sp3 - Antibiotic Education sp3 - Prescription Opioid Use sp3 - Patient Portal Instructions sp3 - Leadership Thank You Letter sp3 Prescriptions: - ondansetron 8 mg Oral Tablet,disintegrating - take 1 tablet ORAL route every 12 hours; 20 tablet; Refills: 0, Product sp3 Selection Permitted Signatures: Dispatcher [employer] EDSusie Pickard RN RN aa5 Mannie Marie MD MD sp3 Gabbie Vaca RN RN vc1 Lisa Gentile RN RN ha1 Harsha Chino MD MD rt Ashely Camarillo RN ph Corrections: (The following items were deleted from the chart) 06:39 06:39 CBC+H.LAB.BRZ ordered. EDMS EDMS 06:39 06:39 COMPREHENSIVE METABOLIC PANEL+C.LAB.BRZ ordered. EDMS EDMS 06:39 06:39 LIPASE+C.LAB.BRZ ordered. EDMS EDMS 06:39 06:39 Urinalysis W/Microscopic+U.LAB.BRZ ordered. EDMS EDMS 06:39 06:39 Abdomen Pelvis W Con+CT.RAD.BRZ ordered. EDMS EDMS 08:45 08:26 NS 0.9% IV 1000 ml IV at 1000 ml once; to be given as a bolus over 60 minutes aa5 ordered. sp3
--- NOTE | 2024-10-24 09:05 | ER ---
Nurse's Notes [facility] Name: Edinson Coffey Jr Age: 44 yrs Sex: Male : 1980 Arrival Date: 10/24/2024 Time: 06:28 Bed 6 Private MD: Diagnosis: Vomiting, dehydration, hyperglycemia Presentation: 10/24 06:40 Chief complaint: Patient states: lower back pain with vomiting that started last night. vc1 Coronavirus screen: Client denies travel out of the [place] in the last 14 days. Ebola Screen: Patient negative for fever greater than or equal to 101.5 degrees Fahrenheit, and additional compatible Ebola Virus Disease symptoms Patient denies exposure to infectious person. Patient denies travel to an Ebola-affected area in the 21 days before illness onset. No symptoms or risks identified at this time. Initial Sepsis Screen: Does the patient meet any 2 criteria? No. Patient's initial sepsis screen is negative. Does the patient have a suspected source of infection? No. Patient's initial sepsis screen is negative. Risk Assessment: Do you want to hurt yourself or someone else? Patient reports no desire to harm self or others. Onset of symptoms was October 24, 2024 at 01:00. Activity prior to arrival: None. 06:40 Method Of Arrival: Ambulatory vc1 06:40 Acuity: AMY 3 vc1 Triage Assessment: 06:45 General: Appears in no apparent distress. uncomfortable, slender, well groomed, well vc1 developed, well nourished, Behavior is calm, cooperative, appropriate for age. Pain: Complains of pain in mid back area Pain does not radiate. Pain currently is 7 out of 10 on a pain scale. Also complains of nausea. EENT: No deficits noted. No signs and/or symptoms were reported regarding the EENT system. Neuro: Level of Consciousness is awake, alert, obeys commands, Oriented to person, place, time, situation, Appropriate for age. Cardiovascular: Capillary refill < 3 seconds Patient's skin is warm and dry. Respiratory: Airway is patent Respiratory effort is even, unlabored, Respiratory pattern is regular, symmetrical, Breath sounds are clear bilaterally. GI: Reports diarrhea, vomiting. : No deficits noted. No signs and/or symptoms were reported regarding the genitourinary system. Derm: Skin is intact, is healthy with good turgor, Skin is dry, Skin is normal, Skin temperature is warm. Musculoskeletal: Circulation, motion, and sensation intact. Range of motion: intact in all extremities. Historical: - Allergies: :44 Morphine; vc1 - PMHx: :44 diabetes mellitus; vc1 - PSHx: :44 Cholecystectomy; left arm; vc1 - Immunization history:: Client reports having NOT received the Covid vaccine. - Infectious Disease History:: Denies. - Family history:: not pertinent. - Social history:: Smoking status: Patient reports the use of cigarette tobacco products, smokes one pack cigarettes per day. Screenin:44 [facility] ED Fall Risk Assessment (Adult) History of falling in the last 3 months, vc1 including since admission No falls in past 3 months (0 pts) Confusion or Disorientation No (0 pts) Intoxicated or Sedated No (0 pts) Impaired Gait No (0 pts) Mobility Assist Device Used No (0 pt) Altered Elimination No (0 pt) Score/Fall Risk Level 0 - 2 = Low Risk Oriented to surroundings, Maintained a safe environment, Educated pt \T\ family on fall prevention, incl call for assistance when getting out of bed, Hourly rounding (assess needs \T\ fall precautionary measures) done. Abuse screen: Denies threats or abuse. Nutritional screening: No deficits noted. Tuberculosis screening: No symptoms or risk factors identified. Assessment: 06:48 Reassessment: Patient and/or family updated on plan of care and expected duration. Pain br2 level reassessed. Patient is alert, oriented x 3, equal unlabored respirations, skin warm/dry/pink. General: Appears uncomfortable, Behavior is calm, cooperative. Pain: Complains of pain in posterior aspect of left lateral abdomen and posterior aspect of right lateral abdomen Pain does not radiate. Pain currently is 7 out of 10 on a pain scale. Neuro: [place] Agitation-Sedation Scale (RASS): 0 - Alert and Calm Level of Consciousness is awake, alert, obeys commands, Oriented to person, place, time, situation. Cardiovascular: Denies chest pain. Respiratory: Denies cough, shortness of breath. GI: Abdomen is flat, non-distended, Reports nausea. : No signs and/or symptoms were reported regarding the genitourinary system. EENT: No signs and/or symptoms were reported regarding the EENT system. Derm: No signs and/or symptoms reported regarding the dermatologic system. Musculoskeletal: Circulation, motion, and sensation intact. Capillary refill < 3 seconds, Range of motion: intact in all extremities. 07:45 Reassessment: Patient appears in no apparent distress at this time. Patient and/or ph family updated on plan of care and expected duration. Pain level reassessed. Patient is alert, oriented x 3, equal unlabored respirations, skin warm/dry/pink. Patient states feeling better. 08:23 General: Appears comfortable, Behavior is calm, cooperative. Neuro: Level of aa5 Consciousness is awake, alert, obeys commands, Oriented to person, place, time, situation. Respiratory: Airway is patent Respiratory effort is even, unlabored, Respiratory pattern is regular, symmetrical. Derm: Skin is dry, Skin is normal, Skin temperature is warm. Vital Signs: 06:40 BP 134 / 99; Pulse 129; Resp 16; Temp 97.4; Pulse Ox 98% ; Weight 79.38 kg; Height 6 vc1 ft. 0 in. ; Pain 7/10; 07:45 BP 126 / 85; Pulse 107; Resp 18; Pulse Ox 100% on R/A; ph 08:46 BP 115 / 83; Pulse 100; Resp 16 S; Pulse Ox 99% on R/A; aa5 09:11 BP 115 / 83; Pulse 96; Resp 18; Temp 97.5; Pulse Ox 100% on R/A; ph 06:40 Body Mass Index 23.73 (79.38 kg, 182.88 cm) vc1 06:40 Pain Scale: Adult vc1 Vitals: 09:11 Cardiac Rhythm Assessment Sinus rhythm. ED Course: 06:31 Patient arrived in ED. gm2 06:32 Harsha Chino MD is Attending Physician. rt 06:44 Triage completed. vc1 06:44 Arm band placed on left wrist. vc1 06:45 Patient has correct armband on for positive identification. Bed in low position. Call vc1 light in reach. Provided Education on: call light, labs. Pulse ox on. NIBP on. 06:48 Yenny Moe RN is Primary Nurse. br2 06:48 Inserted saline lock: 20 gauge in right antecubital area, using aseptic technique. br2 Blood collected. Flushed with 10 mL NS. 06:54 EKG done, by nuclear medicine technologist. ha1 07:11 Attending Physician role handed off by Harsha Chino MD sp3 07:11 Mannie Marie MD is Attending Physician. sp3 08:00 CT Abd/Pelvis - IV Contrast Only In Process Unspecified. EDMS 08:45 Urine collected: clean catch specimen, sent to lab. aa5 09:12 No provider procedures requiring assistance completed. IV discontinued, intact, ph bleeding controlled, No redness/swelling at site. Pressure dressing applied. Administered Medications: 06:48 Drug: TORadol - Ketorolac IVP 15 mg IVP once Route: IVP; Site: right antecubital; ha1 07:46 Follow up: Response: No adverse reaction; Pain is decreased ph 06:48 Drug: NS 0.9% IV 1000 ml IV at 1 bolus Per protocol; to be given as a bolus over 60 ha1 minutes Route: IV; Rate: 1 bolus; Site: right antecubital; 08:00 Follow up: Response: No adverse reaction; IV Status: Completed infusion; IV Intake: ph 1000ml 08:23 Drug: NS 0.9% IV 1000 ml IV at 1 bolus Per protocol; to be given as a bolus over 60 aa5 minutes Route: IV; Rate: 1 bolus; Site: right antecubital; 09:12 Follow up: Response: No adverse reaction; IV Status: Completed infusion; IV Intake: ph 1000ml 08:45 CANCELLED (Physician Discretion): ns 0.9% 1000 ml IV at 1000 ml once; to be given as a aa5 bolus over 60 minutes Medication: 06:45 VIS not applicable for this client. vc1 Intake: 08:00 IV: 1000ml; Total: 1000ml. ph 09:12 IV: 1000ml; Total: 2000ml. ph Outcome: 09:04 Discharge ordered by . sp3 09:13 Discharged to home ambulatory, with significant other, ph 09:13 Condition: good 09:13 Discharge instructions given to patient, Instructed on discharge instructions, follow up and referral plans. medication usage, Demonstrated understanding of instructions, follow-up care, medications, Prescriptions given X 1, 09:15 Patient left the ED. ph Signatures: [facility] Susie Bloom RN RN aa5 Ashely Camarillo RN Mannie Farrar ph, MD MD sp3 Gabbie Vaca, RN RN vc1 Lisa Gentile, RN RN ha1 Harsha Chino MD MD rt Lupe Hoover gm2 Yenny Moe RN RN br2
[2024-10-24 09:36] VITALS: BP 115/83
[2024-10-24 09:41] VITALS: TEMP 97.5; O2SAT 100
--- NOTE | 2024-10-24 13:18 | EKG ---
Test Date: 2024-10-24 Test Time: 06:51:53 Physical Chemist: AF MEASUREMENT RESULTS: Intervals: Rate: 110 MO: 138 QRSD: 76 QT: 304 QTc: 411 Eucha: P: 80 MO: 138 QRS: 71 T: 76 INTERPRETIVE STATEMENTS: Sinus tachycardia Possible Left atrial enlargement Borderline ECG No previous ECG available for comparison Electronically Signed On 10-24-24 13:17:16 CDT by Ortiz Pro
== END 2024-10-24 09:15 | disposition home or self-care (01) ==
LOC: ER 06:28
DX: R11.10 Vomiting, unspecified (principal); E86.0 Dehydration; R73.9 Hyperglycemia, unspecified; E11.9 Type 2 diabetes mellitus without complications; F17.210 Nicotine dependence, cigarettes, uncomplicated; Z88.5 Allergy status to narcotic agent
CPT/HCPCS: 96361; 93005; 85025; 81001; 36415; 83690; 80053; 74177; 96374; 99284; Q9967; J7030 ×2